=== PATIENT | male | born 1960 | race Caucasian/White ===

== ENCOUNTER 2017-07-27 21:26 | Emergency (ER) | payer MEDICARE ==
[2017-07-27] MEDS ORDERED: Meperidine SYRINGE* 50 MG/ML ONE (22:16)
[2017-07-27] MEDS ORDERED: Midazolam* 1 MG/ML 10 ML VIAL (10 MG) ONE (22:16)
--- NOTE | 2017-07-27 23:37 | ED ---
Rachel Escamilla Rebecca, scribed for Ashish Moise MD on 07/27/17 at 2142 . Throat Pain/Nasal Congestion - HPI Summary HPI Summary: Pt is a 57 y/o M BIBA as a transfer from [facility] who presents to ED c/o dysphagia. Sx began at noon today and worsened at 1600 after eating steak and now, he is unable to tolerate any PO intake. Pt c/o vomiting after trying to eat or drink anything, including medication at [facility]. Reports he believes it is stomach acid that is causing the sx, not a FB. At [facility], he was being worked up for esophageal FB where he was given Nitro, GI cocktail, glucagon, morphine and valium. PMHx GERD, anxiety, COPD. - History of Current Complaint Chief Complaint: EDForeignBodyEsophag Time Seen by Provider: 07/27/17 21:27 Hx Obtained From: Patient, EMS Onset/Duration: Still Present Severity: Moderate Associated Signs And Symptoms: Positive: Dysphagia Cough: None - Allergies/Home Medications Allergies/Adverse Reactions: Allergies Allergy/AdvReac Type Severity Reaction Status Date / Time No Known Allergies Allergy Verified 07/27/17 21:31 PMH/Surg Hx/FS Hx/Imm Hx Respiratory History: Reports: Hx Chronic Obstructive Pulmonary Disease (COPD) GI History: Reports: Hx Gastroesophageal Reflux Disease Psychiatric History: Reports: Hx Anxiety Infectious Disease History: No Infectious Disease History: Denies: Traveled Outside the [place] in Last 30 Days - Family History Known Family History: Negative: Cardiac Disease, Hypertension, Diabetes - Social History Alcohol Use: None Substance Use Type: Reports: None Smoking Status (MU): Former Smoker Review of Systems Negative: Fever Positive: Other - Dysphagia All Other Systems Reviewed And Are Negative: Yes Physical Exam Triage Information Reviewed: Yes Vital Signs On Initial Exam: Initial Vitals Temp Pulse Resp BP Pulse Ox 97.9 F 86 24 128/75 99 07/27/17 21:29 07/27/17 21:29 07/27/17 21:29 07/27/17 21:29 07/27/17 21:29 Vital Signs Reviewed: Yes Appearance: Positive: Well-Appearing, Pain Distress - mild discomfort Skin: Positive: Warm Head/Face: Positive: Normal Head/Face Inspection Eyes: Positive: MICHELINE ENT: Positive: Pharynx normal Neck: Positive: Supple Respiratory/Lung Sounds: Positive: Clear to Auscultation, Breath Sounds Present Cardiovascular: Positive: RRR Abdomen Description: Positive: Nontender, Soft Psychiatric: Positive: Affect/Mood Appropriate Diagnostics - Vital Signs Vital Signs Temp Pulse Resp BP Pulse Ox 07/27/17 21:29 97.9 F 86 24 128/75 99 - Laboratory Lab Statement: Any lab studies that have been ordered have been reviewed, and results considered in the medical decision making process. Re-Evaluation - Re-Evaluation First Eval Change: Improved - fb removed by dr abreu, pt now tolerating poi EENT Course/Dx - Course Assessment/Plan: Pt is a 57 y/o M BIBA as a transfer from [facility] who presents to ED c/o dysphagia. Sx began at noon today and worsened at 1600 after eating steak and now, he is unable to tolerate any PO intake. Pt c/o vomiting after trying to eat or drink anything, including medication at [facility]. Reports he believes it is stomach acid that is causing the sx, not a FB. At [facility], he was being worked up for esophageal FB where he was given Nitro, GI cocktail, glucagon, morphine and valium. PMHx GERD, anxiety, COPD. Discussed care of pt with Dr. Abreu who will evaluate the pt in the ED. Dr. Abreu did an endoscopy of the esophagus in the ED. Pt will be D/C to home with Dx of foreign body, esophagus. He understands and agrees. - Diagnoses Provider Diagnoses: Foreign body in esophagus - Provider Notifications Discussed Care Of Patient With: Ankit Abreu Time Discussed With Above Provider: 21:28 Instructed by Provider To: Other - Will evaluate the pt in the ED Discharge - Discharge Plan Condition: Improved Disposition: HOME Referrals: Non Staff,Doctor [Primary Care Provider] - The documentation as recorded by the Rachel león Rebecca accurately reflects the service I personally performed and the decisions made by me, Ashish Moise MD.
[2017-07-28 00:25] VITALS: BP 116/75
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
--- NOTE | 2017-07-28 02:04 | PRO ---
DATE: 07/27/17 - EMERGENCY DEPT REFERRING PHYSICIAN: Octaviano [place] * PROCEDURE: Upper gastrointestinal endoscopy and CLOtest. INDICATION: This 57-year-old man came to the emergency room spitting up having a sense of steak lodging in his esophagus. He has a long history of heartburn and had prior endoscopy possibly 10 years ago in the [facility]. He is not aware of the results. See separate dictation. ENDOSCOPIST: Dr. Abreu. MEDICATION: Midazolam 8, meperidine 75. FINDINGS: He is a further moderately overweight man sighing as he relates the history frequently giving superlatives of his system being completely shut down or the worst ever. EGD: Larynx - symmetric, limited views. Esophagus - easily entered and the mucosa was normal in the upper and mid esophagus. The EG junction at 39 has a substantial erosion at 4 o'clock orientation. It appears fairly typical, but it is broad and fairly deep. There is not any hiatal hernia. There is a minimal ring effect. Stomach - half full of food. The mucosa seen appears normal. A CLOtest was taken from proximal antrum. The antrum and pylorus appear normal. Duodenum bulb - appears normal and stomach was not distended given presence of food. IMPRESSION: 1. Moderate hiatal hernia. 2. Moderately severe gastroesophageal reflux disease - omperazole 40 mg start every morning and he can continue his ranitidine 150 and follow up in a month. [id number]/CPS #: [id number] MTDD
== END 2017-07-28 00:23 | disposition home or self-care (01) ==
LOC: ED 21:26
DX: R13.10 Dysphagia, unspecified (principal); S10.15XA Superficial foreign body of throat, initial encounter; X58.XXXA Exposure to other specified factors, initial encounter; Y93.9 Activity, unspecified; Y92.9 Unspecified place or not applicable; Z87.891 Personal history of nicotine dependence; Z87.19 Personal history of other diseases of the digestive system
CPT/HCPCS: 87077; 99156; 99157; 99282; J2250; J2310